=== PATIENT | female | born 1995 | race African-American/Black ===

== ENCOUNTER 2019-05-10 13:45 | Emergency (ER) | payer SELFPAY ==
[2019-05-10 13:59] VITALS: BP 120/71; PULSE 113; RESP 16; TEMP 37.7; O2SAT 99
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
== END 2019-05-10 14:38 | disposition short-term general hospital (02) ==
PROVIDERS: Emergency Provider Nurse Practitioner
DX: S09.90XA Unspecified injury of head, initial encounter (principal); Y04.2XXA Assault by strike against or bumped into by another person, initial encounter
CPT/HCPCS: 99203; G0463

== ENCOUNTER 2021-01-23 17:09 | Emergency (ER) | payer OTHER, SELFPAY ==
[2021-01-23 17:29] VITALS: BP 138/70; PULSE 88; RESP 18; TEMP 36.8; O2SAT 100
[2021-01-23 17:42] LABS: Basophils Absolute Auto 0.1 K/mm3 (0.0-0.1); Basophils Percent Auto 0.6 % (0.2-1.2); Eosinophils Percent Auto 0.3 % (0-4.4); Hematocrit 33.5 % (37.0-47.0); Hemoglobin 11.6 g/dL (12.0-15.0); Immature Granulocyte Absolute 0.03 K/mm3 (0.00-0.031); Immature Granulocyte Percent A 0.3 % (0-0.5); Lymphocytes Absolute Auto 1.36 K/mm3 (0.9-3.2); Lymphocytes Percent Auto 15.8 % (18.3-44.2); Mean Corpuscular HGB Conc 34.6 g/dl (32-36); Mean Corpuscular Hemoglobin 33.8 pg (26-34); Mean Corpuscular Volume 97.7 fl (80-100); Mean Platelet Volume 11.3 fl (7.4-10.4); Monocytes Absolute Auto 0.6 K/mm3 (0.1-0.6); Monocytes Percent Auto 7.1 % (2.6-8.5); Neutrophils Absolute Auto 6.5 K/mm3 (1.3-6.7); Neutrophils Percent Auto 75.9 % (45.5-73.1); Platelet Count Result 219 k/mm3 (150-375); Red Blood Count 3.43 M/mm3 (4.2-5.4); White Blood Count 8.6 K/mm3 (4.5-10.0)
[2021-01-23 17:53] LABS: Alanine Aminotransferase 16 U/L (4-35); Albumin Level 4.5 g/dL (3.5-5.1); Alkaline Phosphatase 78 U/L (38-126); Anion Gap 7 mmol/L (8-16); Aspartate Amino Transferase 22 U/L (14-36); Bilirubin,Total 0.2 mg/dL (0.2-1.3); Blood Urea Nitrogen 11 mg/dL (7-17); Calcium 9.9 mg/dL (8.4-10.2); Carbon Dioxide 27 mmol/L (22-30); Chloride 103 mmol/L (98-107); Estimated CRCL calculation 98 ml/min; Estimated Glomerular Filt Rate > 60; Glucose 104 mg/dL (65-110); Lipase 82 U/L (23-300); Potassium 3.9 mmol/L (3.4-5.0); Sodium 137 mmol/L (137-145)
[2021-01-23 18:50] LABS: Add Urine Microscopic? YES; Amorphous Sediment Urine Few; Appearance Urine Cloudy (Clear); Bacteria Urine Trace /hpf; Bilirubin Urine Negative (Negative); Blood Urine Negative (Negative); Color Urine Yellow (Yellow); Glucose Urine UA Negative (Negative); Ketones Urine Negative (Negative); Leukocyte Esterase Ur Trace LEU/UL (Negative); Mucus Urine Rare /lpf; Nitrate Urine Negative (Negative); Protein Urine Negative (Negative); Specific Grav Ur 1.021 (1.001-1.035); Squamous Epithelial Cell Urine Many /hpf (Few); Urobilinogen Urine Negative mg/dL (<2.0); WBC Urine 0-3 /hpf
--- NOTE | 2021-01-23 19:37 | ED.ABDPAIN ---
HPI - Abdominal Pain General Chief Complaint: Abdominal Pain Stated Complaint: 12 weeks abd pain Time Seen by Provider: 01/23/21 19:28 Source: RN notes reviewed History of Present Illness HPI narrative: Patient presents emergency department from home for abdominal pain. Patient states she developed right side abdominal pain approximately 4:30 PM today. The pain is located in the right mid abdomen does not radiate described as sharp and stabbing. Patient states she is approximately 12 weeks is followed by Dr. Vazquez. States she had a ultrasound at 9 weeks showing IUP. 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 she denies any fevers or chills nausea vomiting diarrhea vaginal bleeding or any other symptoms Related Data Allergies Allergy/AdvReac Type Severity Reaction Status Date / Time No Known Allergies Allergy Verified 01/23/21 20:13 Review of Systems Review of Systems: Gen.: Denies fevers or chills ENT: Denies congestion Respiratory: Denies shortness of breath or cough CV: Denies chest pain or palpitations GI: See HPI reports being 10 weeks Musculoskeletal: Denies back pain or muscle pain Neuro: Denies numbness, tingling, weakness or focal weakness Skin: Denies rash Except as documented, all other systems reviewed and negative [facility] Past Medical History Medical History (Updated 01/23/21 @ 21:08 by Derek Turcios DO) Patient denies significant medical history Social History Social History (Updated 01/23/21 @ 19:38 by Derek Turcios DO) Smoking status: Never smoker Exam Narrative: APPEARANCE: No acute distress, nontoxic, resting in bed EYES: EOMI HEENT: Normocephalic, atraumatic, OMM RESPIRATORY: No respiratory distress Clear to auscultation bilaterally with no rhonchi wheezing or rales. CARDIOVASCULAR: Regular rate and rhythm without murmurs rubs or gallops. ABDOMINAL: Soft, nondistended tender palpation right mid abdomen no tenderness right lower quadrant or right upper quadrant no tenderness left upper quadrant left lower quadrant no rebound or guarding MUSCULOSKELETAl: Moves all extremities. No clubbing, cyanosis or edema. NEURO: Awake and alert. Following commands, speech normal, no focal deficits SKIN:: Warm, dry. No rashes lesions or abrasions PSYCHIATRIC: Normal affect/mood, Course Course Emergency Course: Patient states that they are feeling much better at this time. States abdominal pain has resolved. Repeat abdominal exam shows the patient's abdomen to be soft and nontender. Discussed with patient results of workup and diagnosis. Discussed need for follow-up with primary care physician, reasons to return to the emergency department in proper use of medication. Patient understands and agrees to current treatment plan Vital Signs Vital signs: Vital Signs Temperature 98.2 F 01/23/21 17:29 Pulse Rate 88 01/23/21 17:29 Respiratory Rate 18 01/23/21 17:29 Blood Pressure 138/70 01/23/21 17:29 Pulse Oximetry 100 01/23/21 17:29 Temperature 98.2 F 01/23/21 17:29 Pulse Rate 88 01/23/21 17:29 Respiratory Rate 18 01/23/21 17:29 Blood Pressure 138/70 01/23/21 17:29 Pulse Oximetry 100 01/23/21 17:29 MDM - Abdominal Pain MDM Narrative Medical decision making narrative: Patient's abdomen is soft without significant pain or signs of surgical abdomen on serial exams. Lab and x-ray evaluations are reviewed and patient is felt to be a reasonable candidate for outpatient management. Patient was instructed as to limitations of x-ray and laboratory evaluation and encouraged to return to ED or primary physician for repeat exam in 12 hours if continued or worsening pain Lab Data Result diagrams: 01/23/21 17:37 01/23/21 17:37 Labs: Lab Results 01/23/21 01/23/21 01/23/21 Range/Units 17:37 17:3
[2021-01-23 20:00] VITALS: BP 115/66; PULSE 77; RESP 16; O2SAT 100
[2021-01-23] MEDS: SODIUM CHLORIDE 0.9% IV 1,000 ML 999 ML IV CONT (20:15)
[2021-01-23 20:30] VITALS: BP 113/71; PULSE 72; RESP 18; O2SAT 100
[2021-01-23 21:00] VITALS: BP 117/76; PULSE 72; RESP 18; O2SAT 100
[2021-01-23 21:15] VITALS: BP 117/74; PULSE 72; RESP 18; TEMP 37.1; O2SAT 100
== END 2021-01-23 21:15 | disposition home or self-care (01) ==
PROVIDERS: Emergency Medicine; Emergency Provider Emergency Medicine
DX: O26.891 Other specified pregnancy related conditions, first trimester (principal); R10.9 Unspecified abdominal pain; Z3A.12 12 weeks gestation of pregnancy
CPT/HCPCS: 36415; 80053; 81001; 81025; 83690; 84702; 85025; 96361; 96374; 99284; J0131; J7030

== ENCOUNTER 2021-04-29 22:30 | Emergency (ER) | payer OTHER, SELFPAY ==
--- NOTE | ~2021-04-29 | XR_ITS ---
EXAMINATION: XR hand RT min 3V EXAM DATE: 04/29/2021 23:28 INDICATION: Right thumb injury TECHNIQUE: Right hand frontal, lateral and oblique projections obtained and reviewed. There is no pr ior study for comparison. FINDINGS: There is complete posterior dislocation of the right 1st distal phalanx. Small ossification identified adjacent to the interphalangeal joint suspected more likely ossicle than avulsion fractur e. This can be reevaluated on post reduction film. Otherwise unremarkable exam. IMPRESSION: Right 1st distal phalangeal posterior dislocation. Tiny ossification more likely ossicle than volar plate avulsion. Reviewed, dictated and finalized at location [facility]. [facility] GRINDER IMPRESSION: Right 1st distal phalangeal posterior dislocation. Tiny ossificati on more likely ossicle than volar plate avulsion.
[2021-04-29 22:29] VITALS: BP 125/80; PULSE 86; RESP 16; TEMP 36.6; O2SAT 100
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
== END 2021-04-30 01:00 | disposition home or self-care (01) ==
PROVIDERS: Emergency Provider Nurse Practitioner Family
DX: O9A.212 Injury, poisoning and certain other consequences of external causes complicating pregnancy, second trimester (principal); S63.124A Dislocation of interphalangeal joint of right thumb, initial encounter; S80.02XA Contusion of left knee, initial encounter; S80.11XA Contusion of right lower leg, initial encounter; Z3A.26 26 weeks gestation of pregnancy; V43.62XA Car passenger injured in collision with other type car in traffic accident, initial encounter
CPT/HCPCS: 73130; 99283

== ENCOUNTER 2021-05-02 19:09 | Emergency (ER) | payer OTHER, SELFPAY ==
--- NOTE | ~2021-05-02 | XR_ITS ---
EXAMINATION: XR finger 1st RT min 2V INDICATION: Dislocation reduction TECHNIQUE: Three views of the right first finger are obtained. COMPARISON: 04/29/2021 FINDINGS: Bone alignment is normal. There is an avulsion fracture at the medial/volar base of the fir st distal phalanx. Soft tissue swelling surrounds the fracture. No additional acute osseous findings are evident. IMPRESSION: 1. Findings consistent with a volar plate avulsion at the palmar base of the first distal phalanx. 2. Reduced first interphalangeal joint dislocation. Reviewed, dictated and finalized at location [facility]. [facility]PERATOR ADJUSTER IMPRESSION: 1. Findings consistent with a volar plate avulsion at the palmar base of the fi rst distal phalanx. 2. Reduced first interphalangeal joint dislocation.
[2021-05-02 19:31] VITALS: BP 122/65; PULSE 84; RESP 18; TEMP 36.7; O2SAT 96
--- NOTE | 2021-05-02 20:46 | PC.NURSE ---
Pt came up to Triage desk asking wait time. Pt informed RN unable to give wait time Pt states I am getting very annoyed and I don't have time for this . Pt yelled as she walked away from Triage desk.
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
[2021-05-02] MEDS: ACETAMINOPHEN 500 MG TABLET 1000 MG PO (21:46)
[2021-05-02 21:51] VITALS: BP 110/68; PULSE 65; RESP 16; O2SAT 98
== END 2021-05-02 21:55 | disposition home or self-care (01) ==
LOC: ANHED 21:27
PROVIDERS: Emergency Provider General Practice
DX: S62.521A Displaced fracture of distal phalanx of right thumb, initial encounter for closed fracture (principal); Z33.1 Pregnant state, incidental; V49.9XXA Car occupant (driver) (passenger) injured in unspecified traffic accident, initial encounter
CPT/HCPCS: 26770; 26785; 73140; 99285; A9270